=== PATIENT | female | born 1965 | race Two or more races ===

== ENCOUNTER 2017-07-05 10:05 | Outpatient (CLI) | payer OTHER ==
[~2017-07-05 10:05] MED LIST: ABILIFY5 MG PO; AMBIEN5 MG PO; AVAPRO75 MG PO; BUSPAR PO; CLONAZEPAM2 MG PO; DORZOLAMIDE-TIM10 ML OP; LAMICTAL100 M1 PO; MULTI-DAY1 TAB PO; OMEPRAZOLE20 MG PO; REFRESH CONTACT12 ML OP
== END 2017-07-05 10:20 | disposition home or self-care (01) ==
LOC: RAD 501 10:05
DX: M25.562 Pain in left knee (principal)